=== PATIENT | male | born 1995 | race Caucasian/White ===

== ENCOUNTER 2018-05-16 14:32 | Emergency (ER) | payer OTHER, MEDICAID ==
[~2018-05-16] VITALS: Ht 182.9 cm; Wt 90.7 kg
[~2018-05-16 14:32] MED LIST: APAP500; BENTYL20 MG PO; ERYTHROMYCIN E3.5 G3 OP; FLONASE 0.05%50 MCG NASAL; GOLYTELY4000 M1 PO; IBUPROFEN 800800 M1 PO; LIORESAL 10 MG10 MG PO; NAPROSYN500 MG PO; NOHOMEMEDICATIONS; ROBAXIN500 MG PO; TRAMADOL 50 MG50 MG PO; ULTRACET TABLE1 EACH PO; ULTRAM50 MG PO
[2018-05-16] MEDS ORDERED: IBUPROFEN 800800 M1 PO (14:51)
[2018-05-16] MEDS ORDERED: EAR DROPS15 ML OT (14:52)
[2018-05-16] MEDS ORDERED: KEFLEX500 M1 PO (15:27)
[2018-05-16] MEDS ORDERED: CIPROFLOXIN HC2.5 M1 OTIC (15:27)
[2018-05-16 15:30] VITALS: BP 118/77
== END 2018-05-16 15:39 | disposition home or self-care (01) ==
LOC: M.ERS 14:32
DX: H66.91 Otitis media, unspecified, right ear (principal); H60.91 Unspecified otitis externa, right ear; F17.210 Nicotine dependence, cigarettes, uncomplicated; Z88.0 Allergy status to penicillin

== ENCOUNTER 2018-08-02 16:47 | Emergency (ER) | payer OTHER, MEDICAID ==
[~2018-08-02] VITALS: Ht 180.3 cm; Wt 83.5 kg
[~2018-08-02 16:47] MED LIST changes: +CIPROFLOXIN HC2.5 M1 OTIC; +EAR DROPS15 ML OT; +KEFLEX500 M1 PO
[2018-08-02 16:53] VITALS: BP 144/83
[2018-08-02] MEDS ORDERED: PROZAC20 MG PO (16:56)
== END 2018-08-02 17:25 | disposition home or self-care (01) ==
LOC: M.ERS 16:47
DX: M54.9 Dorsalgia, unspecified (principal); F10.10 Alcohol abuse, uncomplicated; F17.210 Nicotine dependence, cigarettes, uncomplicated; K51.90 Ulcerative colitis, unspecified, without complications; Z88.0 Allergy status to penicillin; V43.52XA Car driver injured in collision with other type car in traffic accident, initial encounter; Y93.I9 Activity, other involving external motion; Y92.415 Exit ramp or entrance ramp of street or highway as the place of occurrence of the external cause; Y99.8 Other external cause status

== ENCOUNTER 2018-09-29 14:08 | Emergency (ER) | payer OTHER, MEDICAID ==
[~2018-09-29] VITALS: Ht 180.3 cm; Wt 88.5 kg
[~2018-09-29 14:08] MED LIST changes: +PROZAC20 MG PO
[2018-09-29] MEDS ORDERED: POLYMYXIN B/TMP10 ML OPHTHALMIC (14:40)
[2018-09-29 14:49] VITALS: BP 137/95
== END 2018-09-29 14:49 | disposition home or self-care (01) ==
LOC: M.ERS 14:08
DX: H10.9 Unspecified conjunctivitis (principal); F17.210 Nicotine dependence, cigarettes, uncomplicated; Z88.0 Allergy status to penicillin

== ENCOUNTER 2018-10-01 15:30 | Emergency (ER) | payer OTHER, MEDICAID ==
[~2018-10-01] VITALS: Ht 180.3 cm; Wt 86.2 kg
[~2018-10-01 15:30] MED LIST changes: +POLYMYXIN B/TMP10 ML OPHTHALMIC
[2018-10-01] MEDS ORDERED: CIPROFLOXIN HC2.5 M1 OTIC (16:42)
[2018-10-01 16:57] VITALS: BP 141/78
== END 2018-10-01 16:58 | disposition home or self-care (01) ==
LOC: M.ERS 15:30
DX: S05.01XA Injury of conjunctiva and corneal abrasion without foreign body, right eye, initial encounter (principal); F17.210 Nicotine dependence, cigarettes, uncomplicated; H10.33 Unspecified acute conjunctivitis, bilateral; X58.XXXA Exposure to other specified factors, initial encounter; Y93.89 Activity, other specified; Y92.89 Other specified places as the place of occurrence of the external cause; Y99.8 Other external cause status

== ENCOUNTER 2018-10-24 15:21 | Emergency (ER) | payer OTHER ==
[~2018-10-24] VITALS: Ht 180.3 cm; Wt 90.7 kg
[2018-10-24 15:40] LABS: ABSOLUTE BASOPHILS 0.1 thou/uL (0.0-0.2); ABSOLUTE EOSINOPHILS 0.1 thou/uL (0.0-0.7); ABSOLUTE MONOCYTES 0.4 thou/uL (0.0-1.2); ABSOLUTE NEUTROPHILS 4.4 thou/uL (1.6-8.1); BASOPHILS 1.3 %; EOSINOPHILS 1.1 %; HEMATOCRIT 42.5 % (42.0-52.0); HEMOGLOBIN 14.8 gm/dL (14.0-18.0); MCH 30.3 pg (26.0-34.0); MCHC 34.7 g/dL (28.0-37.0); MCV 87.1 fL (80.0-100.0); MONOCYTES 5.6 %; MPV 8.7 fl. (7.2-11.1); NUCLEATED RBCS 0 /100WBC; PLATELET COUNT* 315 thou/uL (150-400); RBC 4.88 mil/uL (4.50-6.00); RDW-CV 13.4 % (10.5-14.5)
[2018-10-24 15:53] LABS: CALCIUM 8.7 mg/dL (8.5-10.1); CREATININE 0.8 mg/dL (0.6-1.3); POTASSIUM 3.7 mmol/L (3.5-5.1)
[2018-10-24 16:01] LABS: ALBUMIN 3.8 g/dL (3.4-5.0); TOTAL BILIRUBIN 0.2 mg/dL (<0.1-1.0); TOTAL PROTEIN 7.7 g/dL (6.4-8.2)
[2018-10-24 16:02] LABS: URINE BILIRUBIN NEGATIVE (Negative); URINE BLOOD NEGATIVE (Negative); URINE CLARITY CLEAR; URINE COLOR YELLOW; URINE GLUCOSE-RANDOM NEGATIVE (Negative); URINE KETONES NEGATIVE (Negative); URINE LEUKOCYTES-REFLEX NEGATIVE (Negative); URINE NITRITE-REFLEX NEGATIVE (Negative); URINE PROTEIN NEGATIVE (Negative); URINE UROBILINOGEN 0.2 E.U./dl (0.2-1.0)
[2018-10-24] MEDS ORDERED: ZOFRAN4 MG PO (16:06)
[2018-10-24 16:13] VITALS: BP 128/74
== END 2018-10-24 16:14 | disposition home or self-care (01) ==
LOC: M.ERS 15:21
PROVIDERS: Nurse Practitioner Family
DX: R11.2 Nausea with vomiting, unspecified (principal); R19.7 Diarrhea, unspecified; F17.210 Nicotine dependence, cigarettes, uncomplicated; Z88.0 Allergy status to penicillin

== ENCOUNTER 2020-10-26 13:35 | Emergency (ER) | payer OTHER ==
[~2020-10-26] VITALS: Ht 180.3 cm; Wt 88.5 kg
[~2020-10-26 13:35] MED LIST changes: +ZOFRAN4 MG PO
[2020-10-26 14:33] VITALS: BP 122/55
== END 2020-10-26 14:34 | disposition home or self-care (01) ==
LOC: M.ERS 13:35
DX: R51.9 Headache, unspecified (principal); Z20.822 Contact with and (suspected) exposure to COVID-19; F17.210 Nicotine dependence, cigarettes, uncomplicated; Z88.0 Allergy status to penicillin

== ENCOUNTER 2020-11-20 18:01 | Emergency (ER) | payer OTHER ==
[~2020-11-20] VITALS: Ht 180.3 cm; Wt 90.7 kg
[2020-11-20 19:10] VITALS: BP 139/82
== END 2020-11-20 19:10 | disposition home or self-care (01) ==
LOC: M.ERS 18:01
DX: U07.1 COVID-19 (principal); F17.210 Nicotine dependence, cigarettes, uncomplicated; Z88.0 Allergy status to penicillin